=== PATIENT | male | born 1960 | race African-American/Black ===

== ENCOUNTER 2017-05-04 11:02 | Emergency (ER) | payer MEDICAID, OTHER ==
[~2017-05-04] VITALS: Ht 182.9 cm; Wt 110.0 kg
[~2017-05-04 11:02] MED LIST: CARBAMAZEPINE; NORCO
[2017-05-04 11:07] VITALS: BP 141/82
== END 2017-05-04 11:16 | disposition left against medical advice (07) ==
LOC: ER 11:02
DX: Z53.21 Procedure and treatment not carried out due to patient leaving prior to being seen by health care provider (principal)

== ENCOUNTER 2021-11-11 11:47 | Emergency (ER) | payer MEDICAID ==
[~2021-11-11] VITALS: Ht 198.1 cm; Wt 110.0 kg
[2021-11-11 12:26] VITALS: BP 123/83
[2021-11-11] MEDS ORDERED: MAGNESIUM/ALUMINUM HYDROXIDE/SIMETHICONE 30ML UDC PO STA (13:20)
[2021-11-11] MEDS ORDERED: VISCOUS LIDOCAINE 2% 15 ML UDC PO STA (13:20)
[2021-11-11] MEDS ORDERED: METOCLOPRAMIDE HCL 10MG/2ML VIAL IV STA (13:20)
[2021-11-11] MEDS ORDERED: ASPIRIN 81MG TABLET PO ONE (13:30)
[2021-11-11] MEDS ORDERED: SODIUM CHLORIDE 0.9% 1,000 ML IV ONE (13:30)
== END 2021-11-11 13:22 | disposition left against medical advice (07) ==
LOC: ER 11:47
DX: R07.9 Chest pain, unspecified (principal); G40.909 Epilepsy, unspecified, not intractable, without status epilepticus
CPT/HCPCS: 93005; 99283; Z7610; J7030

== ENCOUNTER 2022-08-25 11:35 | Emergency (ER) | payer MEDICAID, OTHER ==
[~2022-08-25] VITALS: Ht 198.1 cm; Wt 92.0 kg
[2022-08-25 11:48] VITALS: BP 138/81
[2022-08-25 12:34] LABS: CLARITY URINE CLEAR (CLEAR); COLOR URINE YELLOW (YELLOW); KETONES URINE TRACE (NEGATIVE); LEUKOCYTE ESTERASE URINE TRACE (NEGATIVE); NITRITE URINE NEGATIVE (NEGATIVE); OCCULT BLOOD URINE NEGATIVE (NEGATIVE); PROTEIN URINE 1+ (NEGATIVE); SPECIFIC GRAVITY URINE 1.023 (1.005-1.030)
[2022-08-25] MEDS ORDERED: PENICILLIN G BENZATHINE 2,400,000 UNITS/4ML SYR IM NR (13:00)
[2022-08-25] MEDS ORDERED: CLOT15CR TP (13:33)
[2022-08-25] MEDS ORDERED: DOXY100T28 PO (13:33)
[2022-08-29 07:06] LABS: NEISSERIA GONORRHOEAE NAA Negative (Negative)
== END 2022-08-25 13:52 | disposition home or self-care (01) ==
LOC: ER 11:35
DX: A51.0 Primary genital syphilis (principal); R59.1 Generalized enlarged lymph nodes; N48.1 Balanitis; G40.909 Epilepsy, unspecified, not intractable, without status epilepticus; Z20.822 Contact with and (suspected) exposure to COVID-19
CPT/HCPCS: 81003; 82962; 86592; 86593; 86780; 87491; 87591; 96372; 99283; J0561

== ENCOUNTER 2023-08-02 02:43 | Emergency (ER) | payer MEDICAID, OTHER ==
[~2023-08-02] VITALS: Ht 198.1 cm; Wt 109.0 kg
[~2023-08-02 02:43] MED LIST changes: +CLOT15CR TP; +DOXY100T28 PO
[2023-08-02 03:00] VITALS: BP 116/76; PULSE 80; RESP 18; TEMP 97.7; O2SAT 95
== END 2023-08-02 06:43 | disposition left against medical advice (07) ==
LOC: ER 02:43
DX: B34.9 Viral infection, unspecified (principal)
CPT/HCPCS: 71045; 99283

== ENCOUNTER 2023-08-12 15:54 | Emergency (ER) | payer OTHER ==
[~2023-08-12] VITALS: Ht 198.1 cm; Wt 94.4 kg
[2023-08-12 16:18] VITALS: BP 125/78; PULSE 106; RESP 14; TEMP 98.5; O2SAT 100
== END 2023-08-12 18:31 | disposition left against medical advice (07) ==
LOC: ER 15:54
DX: R53.1 Weakness (principal)
CPT/HCPCS: 72100; 99284